=== PATIENT | male | born 1950 | race Caucasian/White ===

== ENCOUNTER 2018-04-22 02:35 | Emergency (ER) | payer MEDICARE ==
[2018-04-22] MEDS ORDERED: NS 0.9% 1000 ML* 1,000 ML IV ONE ×2 (02:45→03:02)
[2018-04-22 03:00] LABS: Urine Appearance Cloudy; Urine Blood 3+ (Negative); Urine Color Yellow; Urine Ketones Negative (Negative); Urine Protein Negative (Negative); Urine Specific Gravity 1.026 (1.010-1.030); Urine Urobilinogen Negative (Negative)
[2018-04-22 03:02] LABS: Urine Red Blood Cell 3+(>10/hpf) (Absent); Urine White Blood Cell Absent (Absent)
[2018-04-22] MEDS ORDERED: Metoclopramide IV* 5 MG/ML 2 ML VIAL IV SLOW PU ONE (03:02)
[2018-04-22] MEDS ORDERED: Morphine INJ* 4 MG/ML 1 ML SYRINGE (NEW SYRINGE VERSION) IV PRN (03:02)
[2018-04-22 03:09] LABS: ABS Basophils 0.1 10^3/ul (0-0.2); ABS Eosinophils 0.1 10^3/ul (0-0.6); ABS Monocytes 0.6 10^3/ul (0-0.8); ABS Neutrophils 9.2 10^3/ul (1.5-7.7); ABS Nucleated RBC 0 10^3/ul; Eosinophil % 0.4 % (0-6); Hematocrit 43 % (42-52); Hemoglobin 14.9 g/dl (14.0-18.0); Lymphocyte % 16.4 % (25-47); Mean Corpuscular HGB Conc 35 g/dl (31-36); Mean Corpuscular Hemoglobin 30 pg (27-31); Mean Corpuscular Volume 87 fL (80-94); Mean Platelet Volume 8.7 um3 (7.4-10.4); Nucleated Red Blood Cells % 0; Platelet Count 215 10^3/ul (150-450); Red Cell Distribution Width 13 % (10.5-15); White Blood Count 11.9 10^3/ul (3.5-10.8)
[2018-04-22 03:27] LABS: EGFR Non-African American 61.2 (>60)
--- NOTE | 2018-04-22 03:39 | ED ---
GI/ HPI - HPI Summary HPI Summary: This patient is a 67 year old M presenting to [facility] accompanied by with a chief complaint of right sided groin pain since earlier today. The patient rates the pain 9/10 in severity. Patient reports vomiting [employer]. He got a scan recently that revealed kidney stones, likely no larger than 2 mm. Patient has a PMHx of kidney stones. - History of Current Complaint Chief Complaint: EDFlankPain Time Seen by Provider: 04/22/18 03:01 Stated Complaint: FLANK PAIN Hx Obtained From: Patient Onset/Duration: Still Present Timing: Constant Severity: Severe Current Severity: Severe Pain Intensity: 9 Location of Pain: Groin Associated Signs and Symptoms: Positive: Vomiting - Allergy/Home Medications Allergies/Adverse Reactions: Allergies Allergy/AdvReac Type Severity Reaction Status Date / Time No Known Allergies Allergy Verified 04/22/18 02:40 PMH/Surg Hx/FS Hx/Imm Hx History: Reports: Hx Kidney Stones Sensory History: Denies: Hx Deafness Infectious Disease History: No Infectious Disease History: Denies: Traveled Outside the [place] in Last 30 Days - Family History Known Family History: Negative: Cardiac Disease, Diabetes - Social History Occupation: Retired Lives: With Family Alcohol Use: Occasionally Substance Use Type: Reports: None Smoking Status (MU): Former Smoker Review of Systems Positive: Vomiting Positive: other - Groin pain All Other Systems Reviewed And Are Negative: Yes Physical Exam - Summary Physical Exam Summary: VITAL SIGNS: Reviewed. GENERAL: Patient is a well-developed and nourished MALE who is lying comfortable in the stretcher. Patient is not in any acute respiratory distress. HEAD AND FACE: No signs of trauma. No ecchymosis, hematomas or skull depressions. No sinus tenderness. EYES: PERRLA, EOMI x 2, No injected conjunctiva, no nystagmus. EARS: Hearing grossly intact. Ear canals and tympanic membranes are within normal limits. MOUTH: Oropharynx within normal limits. NECK: Supple, trachea is midline, no adenopathy, no JVD, no carotid bruit, no c- spine tenderness, neck with full ROM. CHEST: Symmetric, no tenderness at palpation LUNGS: Clear to auscultation bilaterally. No wheezing or crackles. CVS: Regular rate and rhythm, S1 and S2 present, no murmurs or gallops appreciated. ABDOMEN: Soft, non-tender. No signs of distention. No rebound no guarding, and no masses palpated. Bowel sounds are normal. EXTREMITIES: FROM in all major joints, no edema, no cyanosis or clubbing. NEURO: Alert and oriented x 3. No acute neurological deficits. Speech is normal and follows commands. SKIN: Dry and warm Triage Information Reviewed: Yes Vital Signs On Initial Exam: Initial Vitals Temp Pulse Resp BP Pulse Ox 97.8 F 58 16 170/84 98 04/22/18 02:38 04/22/18 02:38 04/22/18 02:38 04/22/18 02:38 04/22/18 02:38 Vital Signs Reviewed: Yes Diagnostics - Vital Signs Vital Signs Temp Pulse Resp BP Pulse Ox 04/22/18 03:15 20 04/22/18 02:50 54 152/85 97 04/22/18 02:38 97.8 F 58 16 170/84 98 - Laboratory Lab Results: Lab Results 04/22/18 04/22/18 04/22/18 Range/Units 02:50 02:50 02:50 WBC 11.9 H (3.5-10.8) 10^3/ul RBC 4.90 (4.00-5.40) 10^6/ul Hgb 14.9 (14.0-18.0) g/dl Hct 43 (42-52) % MCV 87 (80-94) fL MCH 30 (27-31) pg MCHC 35 (31-36) g/dl RDW 13 (10.5-15) % Plt Count 215 (150-450) 10^3/ul MPV 8.7 (7.4-10.4) um3 Neut % (Auto) 77.6 (38-83) % Lymph % (Auto) 16.4 L (25-47) % Warren % (Auto) 5.0 (0-7) % Eos % (Auto) 0.4 (0-6) % Baso % (Auto) 0.6 (0-2) % Absolute Neuts (auto) 9.2 H (1.5-7.7) 10^3/ul Absolute Lymphs (auto) 2.0 (1.0-4.8) 10^3/ul Absolute Monos (auto) 0.6 (0-0.8) 10^3/ul Absolute Eos (auto) 0.1 (0-0.6) 10^3/ul Absolute Basos (auto) 0.1 (0-0.2) 10^3/ul Absolute Nucleated RBC 0 10^3/ul Nucleated RBC % 0 Sodium 141 (135-145) mmol/L Potassium 4.1 (3.5-5.0) mmol/L Chloride 109 (101-111) mmol/L Carbon Dioxide 25 (22-32) mmol/L Anion Gap 7 (2-11) mmol/L BUN 25 H (6-24) mg/dL Creatinine 1.19 H (0.67-1.17) mg/dL Est GFR ( Amer) 74.0 (>60) Est GFR (Non-Af Amer) 61.2 (>60) BUN/Creatinine Ratio 21.0 H (8-20) Glucose 143 H (70-100) mg/dL Calcium 9.1 (8.6-10.3) mg/dL Total Bilirubin 0.50 (0.2-1.0) mg/dL AST 17 (13-39) U/L ALT 25 (7-52) U/L Alkaline Phosphatase 68 (34-104) U/L C-Reactive Protein < 1.00 (<8.01) mg/L Total Protein 6.4 (6.4-8.9) g/dL Albumin 4.2 (3.2-5.2) g/dL Globulin 2.2 (2-4) g/dL Albumin/Globulin Ratio 1.9 (1-3) Urine Color Yellow Urine Appearance Cloudy Urine pH 5.0 (5-9) Ur Specific [place] 1.026 (1.010-1.030) Urine Protein Negative (Negative) Urine Ketones Negative (Negative) Urine Blood 3+ A (Negative) Urine Nitrate Negative (Negative) Urine Bilirubin Negative (Negative) Urine Urobilinogen Negative (Negative) Ur Leukocyte Esterase Negative (Negative) Urine WBC (Auto) Absent (Absent) Urine RBC (Auto) 3+(>10/hpf) A (Absent) Ur Squamous Epith Cells Present A (Absent) Urine Bacteria Absent (Absent) Urine Glucose Negative (Negative) Result Diagrams: 04/22/18 02:50 04/22/18 02:50 Lab Statement: Any lab studies that have been ordered have been reviewed, and results considered in the medical decision making process. - CT Abdomen/Pelvis CT CT Interpretation Completed By: Radiologist - 05:16. 1. 4 mm calcified stone in the proximal right ureter causing moderate right-sided hydronephrosis and perinephric stranding. 2. Thin interlobar septal thickening in the lung bases with some patchy groundglass opacity. This may be artifactual due to respiratory motion. ED Physician has reviewed this imaging report. GIGU Course/Dx - Course Assessment/Plan: This patient is a 67 year old M presenting to [facility] accompanied by with a chief complaint of right sided groin pain since earlier today. The patient rates the pain 9/10 in severity. Patient reports vomiting [employer]. He got a scan recently that revealed kidney stones, likely no larger than 2 mm. Patient has a PMHx of kidney stones. The abdomen/pelvis CT 05:16 showed: 1. 4 mm calcified stone in the proximal right ureter causing moderate right- sided hydronephrosis and perinephric stranding. 2. Thin interlobar septal thickening in the lung bases with some patchy groundglass opacity. This may be artifactual due to respiratory motion. Patient will be d/c home with a dx of uretal stone and renal colic. He was given oxycodone and Flomax. Patient has been referred to Dr. Wan, urologist. - Diagnoses Provider Diagnoses: Ureteral stone, Renal colic Discharge - Sign-Out/Discharge Documenting (check all that apply): Patient Departure - D/C - Discharge Plan Condition: Stable Disposition: HOME Prescriptions: oxyCODONE/Acetamin 5/325 MG* [Percocet 5/325 TAB*] 1 tab PO Q6H PRN #14 tab MDD 4 PRN Reason: Pain Tamsulosin CAP* [Flomax CAP*] 0.4 mg PO DAILY #7 cap Patient Education Materials: Renal Colic (ED), Ureteral Stones (ED) Referrals: No Primary Care Phys,NOPCP [Primary Care Provider] - (Follow up wtih the [facility] or your PCP in 1-2 days.) Raymundo Wan MD [Medical Doctor] - 1 Day Additional Instructions: RETURN TO THE EMERGENCY DEPARTMENT FOR CHANGING OR WORSENING SYMPTOMS. FOLLOW UP WITH PCP IN 1-2 DAYS. - Attestation Statements Document Initiated by Scribe: Yes Documenting Scribe: Mehul Damico Provider For Whom Scribe is Documenting (Include Credential): Celso Starr MD Scribe Attestation: Mehul Person, scribed for Celso Starr MD on 04/22/18 at 0544.
[2018-04-22] MEDS ORDERED: Ondansetron INJ* 2 MG/ML VIAL IV ONE (03:40)
[2018-04-22] MEDS ORDERED: Ketorolac INJ* 15 MG/ML 1 ML VIAL IV PUSH ONE (03:40)
--- NOTE | 2018-04-22 05:17 | RAD ---
EXAM: CT Abdomen and Pelvis Without Intravenous Contrast CLINICAL HISTORY: 67 years old, male; Pain; Abdominal pain; Flank; Other: Bilateral; Additional info: Flank pain TECHNIQUE: Axial computed tomography images of the abdomen and pelvis without intravenous contrast. All CT scans at this facility use at least one of these dose optimization techniques: automated exposure control; mA and/or kV adjustment per patient size (includes targeted exams where dose is matched to clinical indication); or iterative reconstruction. Coronal and sagittal reformatted images were created and reviewed. COMPARISON: No relevant prior studies available. FINDINGS: Lung bases: Thin interlobar septal thickening in the lung bases with groundglass opacities. This may be created by respiratory motion. Mediastinum: Hiatal hernia. ABDOMEN: Liver: The liver is of normal size and appearance. No focal hepatic lesion. Gallbladder and bile ducts: Cholecystectomy. No ductal dilation. Pancreas: The pancreas is normal in appearance. No ductal dilation. Spleen: The spleen is of normal size and appearance. Adrenals: Unremarkable. No mass. Kidneys and ureters: 4 mm calcified stone located in the proximal right ureter causing moderate right-sided hydronephrosis with perinephric stranding. Small calcification in a midpole calyx which is nonobstructing. The left kidney is of normal size. Multiple small calcified stones within the collecting system the left kidney which are nonobstructing. No sided hydronephrosis. Stomach and bowel: No bowel structure and. No bowel wall thickening. No obstruction. PELVIS: Appendix: No findings to suggest acute appendicitis. Bladder: Unremarkable. No stones. Reproductive: Unremarkable as visualized. ABDOMEN and PELVIS: Intraperitoneal space: Unremarkable. No free air. No significant fluid collection. Bones/joints: No acute fracture. No dislocation. Soft tissues: Unremarkable. Vasculature: Unremarkable. No abdominal aortic aneurysm. Lymph nodes: Unremarkable. No enlarged lymph nodes. IMPRESSION: 1. 4 mm calcified stone in the proximal right ureter causing moderate right-sided hydronephrosis and perinephric stranding. 2. Thin interlobar septal thickening in the lung bases with some patchy groundglass opacity. This may be artifactual due to respiratory motion.
[2018-04-22] MEDS ORDERED: Tamsulosin CAP* 0.4 MG PO ONE (05:31)
[2018-04-22 06:35] VITALS: BP 162/62
== END 2018-04-22 06:49 | disposition home or self-care (01) ==
LOC: ED 02:35
DX: N20.1 Calculus of ureter (principal); Z87.442 Personal history of urinary calculi; Z87.891 Personal history of nicotine dependence
CPT/HCPCS: 36415; 74176; 80053; 81003; 81015; 85025; 86140; 96361; 96374; 96375; 99283; J1885; J2270; J2405; J2765